=== PATIENT | female | born 1965 | race African-American/Black ===

== ENCOUNTER 2023-03-11 13:20 | Emergency (ER) | payer BC ==
[~2023-03-11] VITALS: Ht 160 cm; Wt 61.2 kg
[2023-03-11 13:28] VITALS: BP 121/74; TEMP 98.6
[2023-03-11] MEDS ORDERED: NAPR-1009 PO (15:14)
[2023-03-11 15:42] VITALS: O2SAT 100
== END 2023-03-11 15:43 | disposition home or self-care (01) ==
LOC: ER 13:25
DX: S93.492A Sprain of other ligament of left ankle, initial encounter (principal); Z79.899 Other long term (current) drug therapy; Z88.0 Allergy status to penicillin; X58.XXXA Exposure to other specified factors, initial encounter; Y93.89 Activity, other specified; Y92.89 Other specified places as the place of occurrence of the external cause; Y99.8 Other external cause status
CPT/HCPCS: 73610-TC; 93971-TC